=== PATIENT | female | born 1990 | race Caucasian/White ===

== ENCOUNTER 2018-04-25 19:41 | Emergency (ER) | payer OTHER ==
[~2018-04-25] VITALS: Ht 180.3 cm; Wt 59.0 kg
[2018-04-25] MEDS ORDERED: LORazepam 0.5 MG TAB PO ONE (21:45)
[2018-04-25 21:55] VITALS: BP 106/65
== END 2018-04-25 22:29 | disposition home or self-care (01) ==
LOC: ER 19:41
DX: F41.9 Anxiety disorder, unspecified (principal)
CPT/HCPCS: 82962

== ENCOUNTER 2018-08-10 14:30 | Emergency (ER) | payer OTHER ==
[~2018-08-10] VITALS: Ht 152.4 cm; Wt 45.4 kg
[2018-08-10 15:34] VITALS: BP 115/77
== END 2018-08-10 15:58 | disposition home or self-care (01) ==
LOC: ER 14:30
DX: S60.031A Contusion of right middle finger without damage to nail, initial encounter (principal); W23.0XXA Caught, crushed, jammed, or pinched between moving objects, initial encounter; Y93.89 Activity, other specified; Y92.89 Other specified places as the place of occurrence of the external cause; Y99.0 Civilian activity done for income or pay
CPT/HCPCS: 73130; 81025